=== PATIENT | male | born 1965 | race Caucasian/White ===

== ENCOUNTER 2019-01-04 04:23 | Emergency (ER) | payer OTHER ==
[~2019-01-04] VITALS: Ht 177.8 cm; Wt 136.1 kg
[2019-01-04 04:28] VITALS: Ht 177.8 cm; Wt 136.1 kg
[2019-01-04 06:31] VITALS: BP 132/78
== END 2019-01-04 06:31 | disposition home or self-care (01) ==
LOC: ED 04:23
DX: S39.012A Strain of muscle, fascia and tendon of lower back, initial encounter (principal); S09.8XXA Other specified injuries of head, initial encounter; I10 Essential (primary) hypertension; W50.0XXA Accidental hit or strike by another person, initial encounter; Y93.89 Activity, other specified; Y92.89 Other specified places as the place of occurrence of the external cause; Y99.8 Other external cause status
CPT/HCPCS: J1885